=== PATIENT | male | born 1985 | race Caucasian/White ===

== ENCOUNTER → 2019-10-10 10:05 | Outpatient (CLI) | payer OTHER, SELFPAY ==
--- NOTE | 2019-10-10 10:09 | DI.RAD.S_ITS ---
PROCEDURE: XR LUMBAR SPINE MIN 4V INDICATIONS: LBP with LE symptoms TECHNIQUE: 4 views of the lumbar spine were acquired. COMPARISON: Outside Facility, [facility], MRI L-SPINE W/O CONTRAST, 06/28/2019, 17:00. FINDINGS: Bones: 5 nonrib-bearing vertebrae are present. There is normal bony alignment. Schmorl's nodes noted in the inferior endplate of the L3 and superior to the L4 vertebral bodies. Mild L1-L2, L2-L3 and L5-S1 degenerative disc disease. Moderate L3-L4 degenerative disc disease. No vertebral body compression fractures. No suspicious bony lesions. Soft tissues: Overlying bowel gas pattern is normal. No suspicious soft tissue calcifications. Oblique images: No pars defects. IMPRESSION: 1. Multilevel disc disease. 2. No fracture. No acute osseous lesion. If symptoms and/or clinical suspicion for pathology persists, evaluation with MRI may be helpful for further assessment. Dictated by: Bell Alcantara MD, PhD on 10/10/2019 at 10:58 Approved by: Bell Alcantara MD, PhD on 10/10/2019 at 11:00
== END ==
PROVIDERS: Family Provider Family Medicine; Referring Provider Physical Medicine & Rehabilitation; Visit Provider Physical Medicine & Rehabilitation
DX: M51.16 Intervertebral disc disorders with radiculopathy, lumbar region (principal)
CPT/HCPCS: 72110

== ENCOUNTER → 2020-01-07 09:38 | Outpatient (CLI) | payer OTHER, SELFPAY ==
[2020-01-08 09:24] LABS: COVID19 Sendout Not Detected (Not Detect)
== END ==
PROVIDERS: Family Provider Family Medicine; Visit Provider Physician Assistant
DX: Z11.59 Encounter for screening for other viral diseases (principal)
CPT/HCPCS: 87635

== ENCOUNTER 2020-01-10 13:44 | Outpatient (CLI) | payer OTHER, SELFPAY ==
[2020-01-10] VITALS (9 sets, daily range): BP systolic 120–142; BP diastolic 71–88; PULSE 74–91; RESP 14–23; TEMP 36.3; O2SAT 100
--- NOTE | 2020-01-10 13:49 | DI.RAD.S_ITS ---
PROCEDURE: PAIN L/S TRANSFORAMINAL INJECT INDICATIONS: SPONDYLOSIS COMPARISON: None. FINDINGS: Fluoroscopic spot filming was performed to verify placement of spinal needles at the left L4-5 level(s), as labeled on the films. Appropriate location(s) of the needle tip(s) was confirmed by injection of iodinated contrast. IMPRESSION: Successful needle tip localization on the left at the L4-5 neural foramen, for transforaminal epidural steroid injection. Dictated by: Rex Patterson M.D. on 01/10/2020 at 15:10 Approved by: Rex Patterson M.D. on 01/10/2020 at 15:10
[2020-01-10] MEDS: MIDAZOLAM 5 MG/5 ML VIAL IV (14:33)
[2020-01-10] MEDS: fentaNYL 100 MCG/2 ML INJ 50 MCG IV (14:33)
[2020-01-10] MEDS: IOPAMIDOL 15 ML VIAL 3 ML INJ (14:40)
[2020-01-10] MEDS: BUPIVACAINE 0.25% (PF) VIAL 2 ML INJ (14:40)
[2020-01-10] MEDS: DEXAMETHASONE 10 MG/ML VIAL 20 MG INJ (14:40)
[2020-01-10] MEDS: BETAMETHASONE 30 MG/5 ML MDV 6 MG INJ (14:40)
--- NOTE | 2020-01-10 14:46 | P.PCN_ITS ---
Date/Time/Diagnoses Date of procedure: 01/10/20 Time of procedure: 14:46 Pre-procedure diagnosis: 1. FORAMINAL STENOSIS WITH LE SYMPTOMS Post-procedure diagnosis: same Procedure Notes Procedure: 1. FLUOROSCOPICALLY GUIDED CONTRAST CONTROLLED TRANSFORAMINAL EPIDURAL STEROID INJECTION - LEFT L4/5 Indications: Rojas is referred by for treatment of Foraminal Stenosis with Left LE Symptoms Physician: Magdaleno Sebastian Total Fluoroscopy time (seconds): 9 Total sedation minutes: 9 Complications: none Procedure in detail & Post-procedure care: FINDINGS Foraminal Nerve Root Compression secondary to disc disease and facet hypertrophy DESCRIPTION OF PROCEDURE Following review of allergy and review of potential side effects and complications, including, but not necessarily limited to, infection, allergic reaction, local tissue breakdown, stroke, temporary or permanent nerve injury, paralysis, and possible , the patient indicated that the patient understood and agreed to proceed. An informed consent document was signed by the patient, witnessed by a nurse, and placed in the patient's chart. Additionally, other treatment options including medications, modalities, and physical therapy were reviewed with the patient. After review of previous anaesthesic history and IV conscious sedation the patient was deemed safe to proceed with today?s procedure with IV conscious sedation as ASA class II designation. Safety time-out was performed to confirm patient ID, procedure to be performed and site of procedure. IV sedation was accomplished with a combination of 2mg of Versed and 50mcg of Fentanyl administered by the RN after DO order, titrated to patient comfort during the course of the procedure while the patient remained responsive to all verbal commands In the prone position following sterile prep and drape of the lumbar region, the left L4/5 posterior neuroforamen was identified fluoroscopically. The skin was anesthetized via a 25-gauge 1.5-inch needle with 1% lidocaine solution. At this point, a 25-gauge 3.5-inch spinal needle was atraumatically introduced and advanced under fluoroscopic guidance through the posterior left L4/5 neuroforamen to approximately the anterior aspect of the canal. Depth was confirmed on lateral view. Following negative aspiration, injection of approximately 1.5 cc of Isovue 200 under live fluoroscopy in the AP view confirmed excellent flow along the nerve root, into the epidural space without vascular or intrathecal uptake observed Radiological data, including multiple fluoroscopic views of the lumbosacral spine, reveal a spinal needle at the left L4/5 posterior neuroforamen. Subsequent views show flow of contrast material flowing superiorly and inferiorly along the nerve root confirming epidural flow. Subsequently, a test dose of 1.5 cc of 1% lidocaine solution was administered and patient was observed for two minutes for signs or symptoms of complications, including abdominal pain, shortness of breath, bilateral upper or lower extremity weakness, nausea and vomiting, prior to steroid injection. At this point, a total of 3cc or 20mg of dexamethasone and 6mg of betamethasone was injected without incident. The procedure tolerated the procedure well without signs or symptoms of complications prior to transfer to the recovery area continued monitoring without incident. The patient was then transferred to the recovery area where they were observed for an appropriate time after the injection. The patient reported a VAS score of 7 prior to the procedure and a post- procedure VAS of 0. POST OP INSTRUCTIONS The patient was provided a Pain Log to continue to record their response to the target-specific procedure prior to follow-up visit with their referring physician. Additionally, specific post-injection care instructions and a contact number to our office were provided if concerns arise regarding possible complications associated with the procedure are suspected.
== END 2020-01-10 15:19 | disposition home or self-care (01) ==
PROVIDERS: Family Provider Family Medicine; PCP Naturopath; Referring Provider Physical Medicine & Rehabilitation; Visit Provider Physical Medicine & Rehabilitation
DX: M48.061 Spinal stenosis, lumbar region without neurogenic claudication (principal); M51.16 Intervertebral disc disorders with radiculopathy, lumbar region
CPT/HCPCS: 64483; J0702; J1100; J2250; J3010

== ENCOUNTER → 2020-04-17 13:25 | Outpatient (CLI) | payer OTHER, SELFPAY ==
[2020-04-17 15:29] LABS: COVID19 -Nasal RAPID Negative (Negative)
== END ==
PROVIDERS: Family Provider Family Medicine; PCP Naturopath; Visit Provider Physical Medicine & Rehabilitation
DX: Z01.812 Encounter for preprocedural laboratory examination (principal); Z20.828 Contact with and (suspected) exposure to other viral communicable diseases
CPT/HCPCS: 87635; C9803

== ENCOUNTER 2020-04-19 12:15 | Outpatient (CLI) | payer OTHER, SELFPAY ==
[2020-04-19] VITALS (8 sets, daily range): BP systolic 134–167; BP diastolic 73–83; PULSE 80–87; RESP 13–20; TEMP 36.8; O2SAT 99–100
--- NOTE | 2020-04-19 12:15 | DI.RAD.S_ITS ---
PROCEDURE: PAIN L/SI FACET INJ/BLK 1STL INDICATIONS: SPONDYLOSIS COMPARISON: [facility], , PAIN L/S TRANSFORAMINAL INJECT, 01/10/2020, 14:36. FINDINGS: Fluoroscopic spot filming was performed to verify placement of spinal needles on the left at the L3-L4, L4-L5, and L5-S1 level(s), as labeled on the films. Appropriate location(s) of the needle tip(s) was confirmed by injection of iodinated contrast. IMPRESSION: Intraprocedural examination within normal limits. Dictated by: Tenzin Valverde M.D. on 04/19/2020 at 13:44 Approved by: Tenzin Valverde M.D. on 04/19/2020 at 13:45
[2020-04-19] MEDS: fentaNYL 100 MCG/2 ML INJ 50 MCG IV (13:15)
[2020-04-19] MEDS: MIDAZOLAM 5 MG/5 ML VIAL IV (13:15)
[2020-04-19] MEDS: BUPIVACAINE 0.5% (PF) VIAL 5 ML INJ (13:20)
[2020-04-19] MEDS: IOPAMIDOL 15 ML VIAL 3 ML INJ (13:20)
[2020-04-19] MEDS: BETAMETHASONE 30 MG/5 ML MDV 12 MG INJ (13:20)
--- NOTE | 2020-04-19 13:29 | P.PCN_ITS ---
Date/Time/Diagnoses Date of procedure: 04/19/20 Time of procedure: 13:29 Pre-procedure diagnosis: 1. FACET ARTHROPATHY, 2. AXIAL LBP, 3. MULTILEVEL DDD Post-procedure diagnosis: same Procedure Notes Procedure: 1. FLUOROSCOPICALLY GUIDED CONTRAST CONTROLLED FACET JOINT INJECTIONS LEFT L3/4, L4/5, L5/S1 Indications: Rojas is referred by Dr. Lincoln for treatment of Axial LBP Physician: Magdaleno Sebastian Total Fluoroscopy time (seconds): 8 Total sedation minutes: 10 Complications: none Procedure in detail & Post-procedure care: FINDINGS Multilevel Facet Arthropathy with Clinically significant axial LBP DESCRIPTION OF PROCEDURE Fluoroscopically guided, contrast-controlled left L3/4, L4/5, L5/S1 facet joint injections. Following review of allergy and review of potential side effects and complications, including, but not necessarily limited to, infection, allergic reaction, local tissue breakdown, stroke, temporary or permanent nerve injury, paralysis, and possible , the patient indicated that the patient understood and agreed to proceed. An informed consent document was signed by the patient, witnessed by a nurse, and placed in the patient's chart. Additionally, other treatment options including medications, modalities, and physical therapy were reviewed with the patient. After review of previous anaesthesic history and IV conscious sedation the patient was deemed safe to proceed with today?s procedure with IV conscious sedation as ASA class II designation. Safety time-out was performed to confirm patient ID, procedure to be performed and site of procedure. IV sedation was accomplished with a combination of 2mg of Versed and 50mcg of Fentanylwas administered by the RN after DO order, titrated to patient comfort during the course of the procedure while the patient remained responsive to all verbal commands. In the prone position, following sterile prep and drape of the lumbar region, the posterior aspect of the left L3/4, L4/5, L5/S1 facet joints were identified fluoroscopically. The skin was anesthetized via a 25-gauge 1.5-inch needle with 1% lidocaine solution into the corresponding facet joints. At this point, a 22- gauge 3.5-inch spinal needle was atraumatically introduced and advanced under fluoroscopic guidance into the corresponding facet joints. Following negative aspiration, injections of approximately 0.2-cc of Isovue 200 confirmed interarticular placement without vascular uptake. Radiological data, including multiple fluoroscopic views of the lumbosacral spine, reveal a spinal needle at the left L3/4, L4/5, L5/S1 facet joints. Subsequent views show flow of contrast material both superiorly and inferiorly within the joint space without vascular or intrathecal uptake. At this point, a total of 0.5 cc including a mixture of 0.25cc Marcaine and 0.25cc betamethasone was injected without complication into each of the corresponding facet joints. The procedure tolerated the procedure well without signs or symptoms of complications prior to transfer to the recovery area continued monitoring without incident. The patient was then transferred to the recovery area where they were observed for an appropriate period of time after the injection. The patient reported a VAS score of 7 prior to the procedure and a post-procedure VAS of 0. POST OP INSTRUCTIONS The patient was provided a Pain Log to continue to record their response to the target-specific procedure prior to follow-up visit with their referring physician. Additionally, specific post-injection care instructions and a contact number to our office were provided if concerns arise regarding possible complications associated with the procedure are suspected.
== END 2020-04-19 13:50 | disposition home or self-care (01) ==
LOC: RAD 12:15
PROVIDERS: Family Provider Family Medicine; PCP Naturopath; Referring Provider Naturopath; Visit Provider Physical Medicine & Rehabilitation
DX: M47.816 Spondylosis without myelopathy or radiculopathy, lumbar region (principal); M47.817 Spondylosis without myelopathy or radiculopathy, lumbosacral region; M54.5 Low back pain; M51.36 Other intervertebral disc degeneration, lumbar region; M51.37 Other intervertebral disc degeneration, lumbosacral region
CPT/HCPCS: 64493; 64494; 64495; J0702; J2250; J3010

== ENCOUNTER → 2020-06-18 15:00 | Outpatient (CLI) | payer OTHER, SELFPAY ==
[2020-06-18 15:59] LABS: COVID19 -Nasal RAPID Negative (Negative)
== END ==
PROVIDERS: Family Provider Family Medicine; PCP Naturopath; Visit Provider Physical Medicine & Rehabilitation
DX: Z20.822 Contact with and (suspected) exposure to COVID-19 (principal)
CPT/HCPCS: 87635; C9803

== ENCOUNTER 2020-06-19 08:20 | Outpatient (CLI) | payer OTHER, SELFPAY ==
[2020-06-19] VITALS (8 sets, daily range): BP systolic 121–138; BP diastolic 56–80; PULSE 74–81; RESP 15–20; TEMP 36.9; O2SAT 100
--- NOTE | 2020-06-19 08:22 | DI.RAD.S_ITS ---
PROCEDURE: PAIN L/SI FACET INJ/BLK 1STL INDICATIONS: SPONDYLOSIS COMPARISON: [facility], , PAIN L/SI FACET INJ/BLK 1STL, 04/19/2020, 13:19. FINDINGS: Fluoroscopic spot filming was performed to verify placement of spinal needles on the left at the L3, L4, L5 and S1 level(s), as labeled on the films. Appropriate location(s) of the needle tip(s) was confirmed by injection of iodinated contrast. IMPRESSION: Intraprocedural examination within normal limits. Dictated by: Tenzin Valverde M.D. on 06/19/2020 at 9:10 Approved by: Tenzin Valverde M.D. on 06/19/2020 at 9:10
[2020-06-19] MEDS: fentaNYL 100 MCG/2 ML INJ 50 MCG IV (09:30)
[2020-06-19] MEDS: MIDAZOLAM 5 MG/5 ML VIAL IV (09:36)
[2020-06-19] MEDS: BUPIVACAINE 0.5% (PF) VIAL 5 ML INJ (09:37)
[2020-06-19] MEDS: IOPAMIDOL 15 ML VIAL 3 ML INJ (09:38)
[2020-06-19] MEDS: LIDOCAINE 1% 20 ML 10 ML INJ (09:40)
--- NOTE | 2020-06-19 09:47 | PM.PROC.IR.1 ---
Date/Time/Diagnoses Date of procedure: 06/19/20 Time of procedure: 09:47 Pre-procedure diagnosis: 1. FACET ARTHROPATHY Post-procedure diagnosis: same Procedure Notes Procedure: 1. Left L3, L4, L5 and S1 MB BLOCKS Indications: Rojas is referred by Dr. Lincoln for treatment of Left Axial LBP. Physician: Magdaleno Sebastian Total Fluoroscopy time (seconds): 8 Total sedation minutes: 14 Complications: none Procedure in detail & Post-procedure care: DESCRIPTION OF PROCEDURE Fluoroscopically guided, contrast-controlled left L3, L4, L5 and S1 medial branch blocks with 0.5cc of 0.5% Marcaine. Following review of allergy and review of potential side effects and complications, including, but not necessarily limited to, infection, allergic reaction, local tissue breakdown, nerve injury, paralysis, stroke and possible , the patient indicated that the patient understood and agreed to proceed. An informed consent document was signed by the patient, witnessed by a nurse, and placed in the patient's chart. After review of previous anaesthesic history and IV conscious sedation the patient was deemed safe to proceed with today?s procedure with IV conscious sedation as ASA class II designation. Safety time-out was performed to confirm patient ID, procedure to be performed and site of procedure. IV sedation was accomplished with a combination of 4mg of Versed and 50mcg of Fentanyl was administered by the RN after DO order, titrated to patient comfort during the course of the procedure while the patient remained responsive to all verbal commands. In the prone position, following sterile prep and drape of the lumbar region, the left L3, L4, L5 and S1 anatomical location of the medial branch of the dorsal ramus was identified fluoroscopically. Subsequently an anesthetic skin wheal using 1% lidocaine solution was initiated at each of the anatomical spots. Subsequently then a 22-gauge 3.5-inch spinal needle was atraumatically introduced and advanced under fluoroscopic guidance at each of the corresponding sites at the left L3, L4, L5 and S1 MB. After negative aspiration, 0.2cc of Isovue 200 was injected, confirming placement without vascular or intrathecal uptake. Subsequently then 0.5cc of 0.5% Marcaine solution was injected at each of the corresponding sites at the left L3, L4, L5 and S1 medial branch locations. The patient tolerated the procedure well without signs or symptoms of complications. The patient tolerated the procedure well without signs or symptoms of complications prior to transfer to the recovery area continued monitoring without incident. Post-procedure, the patient was monitored initiating provocative activities to measure the amount of relief from block of the facetogenic pain. The patient reported a VAS of 7 prior to the procedure and a post-procedure VAS of 1. It has been a pleasure to assist in the diagnostic and therapeutic care of your patient. POST OP INSTRUCTIONS The patient was provided with a Pain Log to complete over the next several hours and subsequent days prior to the patient's follow up with the ordering physician. If the patient has consumer recruiter relief to the solution applied, then they may be a candidate for medial branch rhizotomy. The patient is aware, was provided, once again, with a Pain Log and will follow up with the referring physician for review and clinical correlation.
== END 2020-06-19 10:10 | disposition home or self-care (01) ==
LOC: RAD 08:20
PROVIDERS: Family Provider Family Medicine; PCP Naturopath; Referring Provider Physical Medicine & Rehabilitation; Visit Provider Physical Medicine & Rehabilitation
DX: M47.816 Spondylosis without myelopathy or radiculopathy, lumbar region (principal); M47.817 Spondylosis without myelopathy or radiculopathy, lumbosacral region; M54.5 Low back pain
CPT/HCPCS: 64493; 64494; 64495; 99152; J2250; J3010

== ENCOUNTER → 2020-10-08 09:36 | Outpatient (CLI) | payer OTHER, SELFPAY ==
[2020-10-08 12:57] LABS: COVID19 -Nasal RAPID Negative (Negative)
== END ==
PROVIDERS: Family Provider Family Medicine; PCP Registered Nurse; Visit Provider Student in an Organized Health Care Education/Training Program
DX: Z01.812 Encounter for preprocedural laboratory examination (principal); Z20.822 Contact with and (suspected) exposure to COVID-19
CPT/HCPCS: 87635

== ENCOUNTER 2020-10-09 14:58 | Outpatient (CLI) | payer OTHER, SELFPAY ==
[2020-10-09] VITALS (9 sets, daily range): BP systolic 126–151; BP diastolic 69–89; PULSE 77–83; RESP 16–20; TEMP 36.9; O2SAT 98–100
--- NOTE | 2020-10-09 14:59 | DI.RAD.S_ITS ---
PROCEDURE: PAIN L/S TRANSFORAMINAL INJECT INDICATIONS: SPONDYLOSIS COMPARISON: [facility], , PAIN L/S TRANSFORAMINAL INJECT, 01/10/2020, 14:36. FINDINGS: Fluoroscopic spot filming was performed to verify placement of a spinal needle at the L5-S1 level, as labeled on the films. Appropriate location of the needle tip was confirmed by injection of iodinated contrast. IMPRESSION: No significant intraprocedural abnormality. Dictated by: Tenzin Valverde M.D. on 10/09/2020 at 16:15 Approved by: Tenzin Valverde M.D. on 10/09/2020 at 16:15
[2020-10-09] MEDS: fentaNYL 100 MCG/2 ML INJ 50 MCG IV (16:18)
[2020-10-09] MEDS: MIDAZOLAM 5 MG/5 ML VIAL IV (16:21)
[2020-10-09] MEDS: BUPIVACAINE 0.25% (PF) VIAL 2 ML INJ (16:22)
[2020-10-09] MEDS: BETAMETHASONE 30 MG/5 ML MDV 6 MG INJ (16:22)
[2020-10-09] MEDS: IOPAMIDOL 15 ML VIAL 3 ML INJ (16:22)
[2020-10-09] MEDS: DEXAMETHASONE 10 MG/ML VIAL 20 MG INJ (16:23)
--- NOTE | 2020-10-09 16:35 | P.PCN_ITS ---
Date/Time/Diagnoses Date of procedure: 10/09/20 Time of procedure: 16:35 Pre-procedure diagnosis: 1. FORAMINAL STENOSIS WITH LE SYMPTOMS Post-procedure diagnosis: same Procedure Notes Procedure: 1. FLUOROSCOPICALLY GUIDED CONTRAST CONTROLLED TRANSFORAMINAL EPIDURAL STEROID INJECTION - Left L5/S1 Indications: Rojas is referred by SALVADOR Grey for treatment of Foraminal Stenosis with Left LE Symptoms Physician: Magdaleno Sebastian Total Fluoroscopy time (seconds): 12 Total sedation minutes: 11 Complications: none Procedure in detail & Post-procedure care: FINDINGS Foraminal Nerve Root Compression secondary to disc disease and facet hypertrophy DESCRIPTION OF PROCEDURE Following review of allergy and review of potential side effects and complications, including, but not necessarily limited to, infection, allergic reaction, local tissue breakdown, stroke, temporary or permanent nerve injury, paralysis, and possible , the patient indicated that the patient understood and agreed to proceed. An informed consent document was signed by the patient, witnessed by a nurse, and placed in the patient's chart. Additionally, other treatment options including medications, modalities, and physical therapy were reviewed with the patient. After review of previous anaesthesic history and IV conscious sedation the patient was deemed safe to proceed with today?s procedure with IV conscious sedation as ASA class II designation. Safety time-out was performed to confirm patient ID, procedure to be performed and site of procedure. IV sedation was accomplished with a combination of 4mg of Versed and 50mcg of Fentanyl was administered by the RN after DO order, titrated to patient comfort during the course of the procedure while the patient remained responsive to all verbal commands In the prone position following sterile prep and drape of the lumbar region, the Left L5/S1 posterior neuroforamen was identified fluoroscopically. The skin was anesthetized via a 25-gauge 1.5-inch needle with 1% lidocaine solution. At this point, a 22-gauge 5-inch spinal needle was atraumatically introduced and advanced under fluoroscopic guidance through the posterior Left L5/S1 neurofora men to approximately the anterior aspect of the canal. Depth was confirmed on lateral view. Following negative aspiration, injection of approximately 1.5 cc of Isovue 200 under live fluoroscopy in the AP view confirmed excellent flow along the nerve root, into the epidural space without vascular or intrathecal uptake observed Radiological data, including multiple fluoroscopic views of the lumbosacral spine, reveal a spinal needle at the Left L5/S1 posterior neuroforamen. Subsequent views show flow of contrast material flowing superiorly and inferiorly along the nerve root confirming epidural flow. Subsequently, a test dose of 1.5 cc of 1% lidocaine solution was administered and patient was observed for two minutes for signs or symptoms of complications, including abdominal pain, shortness of breath, bilateral upper or lower extremity weakness, nausea and vomiting, prior to steroid injection. At this point, a total of 3cc or 20mg of dexamethasone and 6mg of betamethasone was i njected without incident. The procedure tolerated the procedure well without signs or symptoms of complications prior to transfer to the recovery area continued monitoring without incident. The patient was then transferred to the recovery area where they were observed for an appropriate time after the injection. The patient reported a VAS score of 7 prior to the procedure and a post-procedure VAS of 0. POST OP INSTRUCTIONS The patient was provided a Pain Log to continue to record their response to the target-specific procedure prior to follow-up visit with their referring physician. Additionally, specific post-injection care instructions and a contact number to our office were provided if concerns arise regarding possible complications associated with the procedure are suspected.
== END 2020-10-09 16:55 | disposition home or self-care (01) ==
PROVIDERS: Family Provider Family Medicine; PCP Registered Nurse; Referring Provider Physical Medicine & Rehabilitation; Visit Provider Physical Medicine & Rehabilitation
DX: M54.16 Radiculopathy, lumbar region (principal); M48.07 Spinal stenosis, lumbosacral region
CPT/HCPCS: 64483; 99152; J0702; J1100; J2250; J3010